=== PATIENT | male | born 1995 | race Caucasian/White ===

== ENCOUNTER 2022-03-30 19:25 | Emergency (ER) | payer SELFPAY ==
[2022-03-30 19:32] VITALS: BP 172/114; PULSE 80; RESP 20; TEMP 37.1; O2SAT 100
--- NOTE | 2022-03-30 19:44 | ED.EAR ---
HPI - Ear Problem General Chief complaint: Ear Stated complaint: Ear Pain Time Seen by Provider: 03/30/22 19:44 Source: patient Mode of arrival: ambulatory Limitations: no limitations History of Present Illness HPI Narrative: 26-year-old male presents with complaint of itching to right ear canal for several weeks. States that he has been itching just with his finger, has not placed any objects into your canal. States that over the last few days right ear has became painful. Was concerned for a ear infection due to doing a lot of swimming. Has placed rubbing alcohol and swimmer's ear drops with no relief. Denies fever chills. No change to hearing. Has not noticed any drainage. All systems reviewed and negative except as noted above. Related Data Allergies Allergy/AdvReac Type Severity Reaction Status Date / Time No Known Allergies Allergy Verified 03/30/22 19:40 Review of Systems Review of Systems: CONSTITUTIONAL: Denies fever, chills, or sweats. EYES: Denies visual changes, redness, or discharge. ENT: Denies rhinorrhea, congestion, sore throat. Reports right ear pain and itching. CARDIOVASCULAR: Denies chest pain, palpitations, or edema. RESPIRATORY: Denies cough or dyspnea. GASTROINTESTINAL: Denies abdominal pain, nausea, vomiting, or diarrhea. GENITOURINARY: Denies dysuria or hematuria. SKIN: Denies rash or itching. MUSCULOSKELETAL: Denies back pain, joint pain, or myalgia. NEUROLOGIC: Denies headache, numbness, or weakness. PSYCHIATRIC: Denies anxiety or depression. All other systems reviewed are negative, except as documented in HPI. PMFSH Comments At time of signature, agree with nursing past medical, surgical, social and family history. There is no relevant family history pertinent to the presenting complaint. Exam Narrative: GENERAL: This is a well-nourished, well-developed patient, in no apparent distress. HEAD: normocephalic, atraumatic. EYES: PERRL. Sclera clear/white. Vision is grossly intact. EARS: External ears normal, auditory canals clear and without drainage, TMs normal without perforation. Hearing grossly intact. There is a small abrasion right at the opening of right ear canal. Scant bleeding and scabbing with mild surrounding erythema. Possibly from patient scratching at ear canal. NOSE: External nose normal NECK: Neck supple, non-tender without lymphadenopathy, masses or thyromegaly. CARDIOVASCULAR: Regular rate and rhythm without murmurs, gallops, or rubs. RESPIRATORY: Clear to auscultation. Breath sounds equal bilaterally. No wheezes, rales, or rhonchi. SKIN: warm, Dry, intact with no suspicious lesions or rash, good texture and turgor. NEURO: awake, alert, and oriented to person, place and time. There were no obvious focal neurologic abnormalities. EXTREMITIES: No joint tenderness, effusion, or edema noted. Course Course Level of Care: Express Care Visit Vital Signs Vital signs: Vital Signs Temperature 37.1 C 03/30/22 19:32 Pulse Rate 80 03/30/22 19:32 Respiratory Rate 20 03/30/22 19:32 Blood Pressure 172/114 H 03/30/22 19:32 Pulse Oximetry 100 03/30/22 19:32 Oxygen Delivery Room Air 03/30/22 19:32 Temperature 37.1 C 03/30/22 19:32 Pulse Rate 80 03/30/22 19:32 Respiratory Rate 20 03/30/22 19:32 Blood Pressure 172/114 H 03/30/22 19:32 Pulse Oximetry 100 03/30/22 19:32 Oxygen Delivery Room Air 03/30/22 19:32 Reviewed Medical Decision Making MDM Narrative Medical decision making narrative: Prescribe Bactroban ointment to apply to abrasion to right ear canal 2-3 times a day. Recommend patient avoid scratching at right ear canal. The actual ear canal and TM are not infected. Patient is aware of diagnosis, understands and agrees to treatment plan. Anticipatory guidance given. Patient agrees to follow-up as directed and is aware of reasons to seek care at the emergency department. Portions of this record may have been created with voice re
== END 2022-03-30 19:55 | disposition home or self-care (01) ==
PROVIDERS: Emergency Provider Nurse Practitioner Family
DX: S00.411A Abrasion of right ear, initial encounter (principal); X58.XXXA Exposure to other specified factors, initial encounter
CPT/HCPCS: 99213; G0463

== ENCOUNTER 2022-04-11 08:52 | Emergency (ER) | payer SELFPAY ==
[2022-04-11 08:58] VITALS: BP 180/115; PULSE 69; RESP 18; TEMP 36.6; O2SAT 100
--- NOTE | 2022-04-11 09:55 | ED.URI ---
HPI - URI/Sore Throat General Chief Complaint: Upper Respiratory Infection Stated Complaint: Fever, body aches Time Seen by Provider: 04/11/22 09:55 Source: patient, RN notes reviewed and old records reviewed Mode of arrival: ambulatory Limitations: no limitations History of Present Illness HPI Narrative: 26 year old male who presents to [facility] care with complaints of fever up to 100.3F, body aches, headaches, nausea since yesterday. Patient has been taking some DayQuil and Excedrin for his symptoms. Patient has not been vaccinated for COVID or for influenza, no known exposure to anyone ill. Patient states occasional cough, denies any shortness of breath. MD elicited complaint: fever, cough (occasional), rhinorrhea and other (body aches, nausea, headache) Onset (ago): day(s) (1) Treatments prior to arrival: other (excedrin and DayQuil) Related Data Home Medications Medication Instructions Recorded Confirmed No Home Medications 04/11/22 04/11/22 Allergies Allergy/AdvReac Type Severity Reaction Status Date / Time No Known Allergies Allergy Verified 04/11/22 09:34 Review of Systems Review of Systems: CONSTITUTIONAL: Positive for fever, chills, or sweats. EYES: Denies visual changes, redness, or discharge. ENT: Positive for rhinorrhea, congestion, no sore throat, or otalgia. CARDIOVASCULAR: Denies chest pain, palpitations, or edema. RESPIRATORY: Positive for occasional cough denies dyspnea. GASTROINTESTINAL: Denies abdominal pain, positive for nausea,no vomiting, or diarrhea. GENITOURINARY: Denies dysuria or hematuria. SKIN: Denies rash or itching. MUSCULOSKELETAL: Denies back pain, joint pain, positive for body aches NEUROLOGIC: Positive for headache,no numbness, or weakness. PSYCHIATRIC: Denies anxiety or depression. All systems reviewed & are unremarkable except as noted in HPI and below PMFSH Past Medical History Medical History (Updated 04/12/22 @ 22:02 by Michelle Dooley NP) Pneumonia Surgical History Surgical History (Updated 04/12/22 @ 22:02 by Michelle Dooley NP) No history of previous surgery Social History Social History (Updated 04/12/22 @ 22:03 by Michelle Dooley NP) Smoking status: Never smoker Alcohol intake: current Alcohol use details: rare social Substance use type: marijuana Living arrangements: with family Gender identity (if verbalized by the patient): Male Comments At time of signature, agree with nursing past medical, surgical, social and family history. There is no relevant family history pertinent to the presenting complaint Exam Narrative: GENERAL: Well-appearing, well-nourished, and in no acute distress. HEAD: Normocephalic, atraumatic. EYES: PERRLA and EOMI. ENT: Nares with minimal redness, clear rhinorrhea no epistaxis. Mucous membranes moist.TM's normal with good light reflex, throat pink with no lesions or exudates or tonsil swelling. NECK: Supple.no lymphadenopathy CHEST: Clear to auscultation. No respiratory distress.SAO2 100% on room air, positive for occasional cough, no tachypnea or dyspnea. HEART: Regular rate and rhythm. No murmur heard. Normal peripheral pulses. ABDOMEN: Soft, nontender, nondistended, normal active bowel sounds. EXTREMITIES: Normal range of motion. No edema. SKIN: Warm, dry, no rash. NEURO: No focal deficits. Alert and oriented x3. Course Course Level of Care: Express Care Visit Vital Signs Vital signs: Vital Signs Temperature 36.6 C 04/11/22 08:58 Pulse Rate 69 04/11/22 08:58 Respiratory Rate 18 04/11/22 08:58 Blood Pressure 180/115 H 04/11/22 08:58 Pulse Oximetry 100 04/11/22 08:58 Oxygen Delivery Room Air 04/11/22 08:58 Temperature 36.6 C 04/11/22 08:58 Pulse Rate 69 04/11/22 08:58 Respiratory Rate 18 04/11/22 08:58 Blood Pressure 170/105 H 04/11/22 10:30 Pulse Oximetry 100 04/11/22 08:58 Oxygen Delivery Room Air 04/11/22 08:58 MDM - URI/Sore Throat Differential D
[2022-04-11 10:30] VITALS: BP 170/105
== END 2022-04-11 10:40 | disposition home or self-care (01) ==
PROVIDERS: Emergency Provider Registered Nurse
DX: U07.1 COVID-19 (principal)
CPT/HCPCS: 87081; 87426; 87880; 99213; C9803; G0463